=== PATIENT | female | born 1990 | race Asian ===

== ENCOUNTER 2024-06-17 06:08 | Inpatient (IN) ==
[2024-06-17] MEDS ORDERED: Lidocaine 1% VIAL 10 MG/ML 30 ML VIAL INJ PRN (07:46)
[2024-06-17 08:51] LABS: Urine Benzodiazepine Screen None Detected (None Detect); Urine Cannabinoids Screen None Detected (None Detect); Urine Opiates Screen None Detected (None Detect)
[2024-06-17 09:59] LABS: ABS Eosinophils 0.1 10^3/uL (0.0-0.5); ABS Lymphocytes 1.6 10^3/uL (1.0-4.8); ABS Monocytes 0.6 10^3/uL (0.0-0.9); ABS Neutrophils 9.4 10^3/uL (1.5-7.6); ABS Nucleated RBC 0.01 10^3/ul; Eosinophil % 0.7 %; Hematocrit 40.8 % (35-45); Hemoglobin 13.5 g/dL (11.5-14.3); Lymphocyte % 13.7 %; Mean Corpuscular Hemoglobin 28.6 pg (27-33); Mean Corpuscular Hgb Conc 33.2 g/dL (31-36); Mean Corpuscular Volume 86.3 fL (80-97); Mean Platelet Volume 7.9 fL (7.5-11.2); Nucleated Red Blood Cells % 0.1 %/100WBC (0.0-0.8); Platelet Count 239 10^3/uL (150-450); Red Blood Count 4.73 10^6/uL (3.63-4.92); Red Cell Distribution Width 14.4 % (12-17); White Blood Count 11.8 10^3/uL (3.8-11.8)
[2024-06-17] MEDS: Lactated Ringers 1000 ml BAG 1,000 ML IV ONE (10:38)
[2024-06-17] MEDS: miSOPROStol 100 mcg TAB PO ONE ×2 (11:00→15:18)
[2024-06-17] MEDS: Nalbuphine 10 MG/ML 1 ML VIAL IV ONE (17:20)
[2024-06-17] MEDS: Ondansetron 4 mg VIAL 2 MG/ML 2 ml VIAL IV ONE (17:54)
[2024-06-17] MEDS: OBEPIDURAL (200 ML) 200 ML EPIDURAL ONE (19:08)
[2024-06-17] MEDS: Lactated Ringers 1000 ml BAG 1,000 ML IV SCH (19:14)
[2024-06-17] MEDS: Oxytocin in LR 20,000 MILLI.UNIT/1,000 ML BAG IV SCH (22:06)
[2024-06-17 23:26] LABS: Urine Appearance Clear; Urine Bilirubin Negative (Negative); Urine Blood 2+ (Negative); Urine Color Yellow; Urine Glucose 1+ (>=70 mg/dL) (Negative); Urine Ketones 3+ (Negative); Urine Nitrite Negative (Negative); Urine Protein 1+ (>=30 mg/dL) (Negative); Urine Urobilinogen Negative (Negative); Urine pH 6.5 (5.0-8.0)
[2024-06-17 23:27] LABS: Urine Bacteria Absent /HPF (Absent); Urine Red Blood Cell 3+(>10/hpf) /HPF (0-Trace); Urine Squamous Epithelial Cell Present /HPF (Absent); Urine White Blood Cell Trace(0-5/hpf) /HPF (0-Trace)
[2024-06-17] MEDS: Ondansetron 4 mg VIAL 2 MG/ML 2 ml VIAL IV PRN (23:46)
[2024-06-18] MEDS: OBEPIDURAL (200 ML) 200 ML EPIDURAL ONE (07:07)
[2024-06-18] MEDS: Famotidine IV 10 MG/ML 2 ml VIAL (20 mg) IV SLOW PU ONE (07:26)
[2024-06-18] MEDS: Buffered Lidocaine 1% SYRIN 1 ml INTRADERM ONE ×2 (08:42)
[2024-06-18] MEDS: Phenylephrine 40 mcg/mL 10mL (400mcg) SYRINGE ONE (08:42)
[2024-06-18] MEDS: Lidocaine 1.5% EPI 1:200,000 30 ML SDV ONE (08:42)
[2024-06-18] MEDS ORDERED: Lactated Ringers 1000 ml BAG 1,000 ML IV SCH (09:00)
[2024-06-18] MEDS: Witch Hazel PAD JAR TOPICAL PRN (09:43)
[2024-06-18] MEDS: Dibucaine 1% OINT 28.35 GM TUBE PR PRN (09:43)
[2024-06-19 06:45] LABS: ABS Basophils 0.1 10^3/uL (0.0-0.1); ABS Eosinophils 0.2 10^3/uL (0.0-0.5); ABS Lymphocytes 2.5 10^3/uL (1.0-4.8); ABS Neutrophils 15.1 10^3/uL (1.5-7.6); ABS Nucleated RBC 0.02 10^3/ul; Eosinophil % 1.1 %; Hematocrit 33.3 % (35-45); Hemoglobin 11.3 g/dL (11.5-14.3); Lymphocyte % 13.2 %; Mean Corpuscular Hemoglobin 29.1 pg (27-33); Mean Corpuscular Hgb Conc 33.8 g/dL (31-36); Mean Corpuscular Volume 85.9 fL (80-97); Mean Platelet Volume 7.6 fL (7.5-11.2); Nucleated Red Blood Cells % 0.1 %/100WBC (0.0-0.8); Platelet Count 201 10^3/uL (150-450); Red Blood Count 3.88 10^6/uL (3.63-4.92); Red Cell Distribution Width 14.8 % (12-17); White Blood Count 18.9 10^3/uL (3.8-11.8)
[2024-06-20 10:44] VITALS: BP 111/87
[2024-06-20] MEDS: Glycerin ADULT 2.4 gm SUPP PR PRN (12:25)
== END 2024-06-20 13:27 | disposition home or self-care (01) | DRG 560 ==
LOC: MCHOBOUT 06:08 → MCHOB 07:36
PROVIDERS: ADMIT Midwife; ATTEND Advanced Practice Midwife